=== PATIENT | female | born 1975 | race Two or more races ===

== ENCOUNTER 2016-10-21 23:35 | Inpatient (IN) | payer OTHER ==
[~2016-10-21] VITALS: Ht 154.9 cm; Wt 107.7 kg
[2016-10-21] MEDS ORDERED: NITROGLYCERIN 0.4 MG/TAB BOTTLE SL ONE (23:45)
[2016-10-21] MEDS ORDERED: ASPIRIN 325 MG TABLET PO ONE (23:45)
[2016-10-21] MEDS ORDERED: IV NORMAL SALINE 500 ML BAG IV ONE (23:45)
[2016-10-22] MEDS ORDERED: NITROGLYCERIN 0.4 MG/TAB BOTTLE SL ONE (00:03)
[2016-10-22] MEDS ORDERED: ASPIRIN 325 MG TABLET ONE (00:03)
[2016-10-22] MEDS ORDERED: NITROGLYCERIN OINT 1 GM PACKET TP ONE (00:15)
[2016-10-22] MEDS ORDERED: MORPHINE SULFATE 2 MG/1 ML DISP.SYRIN IV ONE (00:15)
[2016-10-22 00:36] LABS: HEMATOCRIT 35.9 % (37.0-47.0); HEMOGLOBIN 12.5 g/dL (12.0-16.0); MEAN CORPUSCULAR HEMOGLOBIN 31.9 uug (27.0-31.0); MEAN CORPUSCULAR HGB CONC 35 g/dL (32.0-37.0); MEAN CORPUSCULAR VOLUME 91.5 fL (81.0-99.0); RED BLOOD CELL COUNT(AUTO) 3.93 MIL/uL (4.20-5.40); WHITE BLOOD COUNT (AUTO) 9.7 K/uL (4.0-11.2)
[2016-10-22 00:37] LABS: BASOPHILS % (AUTO) 0.3 % (0.0-2.0); CALCIUM 9.1 mg/dL (8.5-10.1); CREATININE 0.8 mg/dL (0.6-1.3); EOSINOPHILS # (AUTO) 0.2 K/uL (0.0-0.7); EOSINOPHILS % (AUTO) 2.3 % (0.0-7.0); LYMPHOCYTES # (AUTO) 3.3 K/uL (0.8-4.8); LYMPHOCYTES % (AUTO) 33.5 % (20.5-51.5); MONOCYTES # (AUTO) 0.5 K/uL (0.1-1.30); MONOCYTES % (AUTO) 5.3 % (0.0-11.0); NEUTROPHILS # (AUTO) 5.7 K/uL (1.8-8.9); NEUTROPHILS % (AUTO) 58.6 % (38.5-71.5); PLATELET COUNT (AUTO) 202 K/uL (150-450); POTASSIUM 3.6 mmol/L (3.5-5.1); RED CELL DISTRIBUTION WIDTH 11.5 % (11.5-14.5)
[2016-10-22 00:49] LABS: ALBUMIN 3.5 g/dL (3.4-5.0); BILIRUBIN,DIRECT 0.1 mg/dL (0.0-0.2); BILIRUBIN,TOTAL 0.2 mg/dL (0.2-1.0); TOTAL PROTEIN, SERUM 7.8 g/dL (6.4-8.2)
[2016-10-22] MEDS ORDERED: IV NS 1000 ML 1,000 ML IV PRN (01:20)
[2016-10-22] MEDS ORDERED: MORPHINE SULFATE 2 MG/1 ML DISP.SYRIN IV PRN (01:30)
[2016-10-22] MEDS ORDERED: ENOXAPARIN SODIUM 40 MG/0.4 ML DISP.SYRIN SQ SCH (01:30)
[2016-10-22] MEDS ORDERED: Z GUARD REMEDY PASTE 57 GM TUBE TOP PRN (01:30)
[2016-10-22] MEDS ORDERED: ZOLPIDEM 5 MG TABLET PO PRN (01:30)
[2016-10-22] MEDS ORDERED: ONDANSETRON 4 MG/2 ML VIAL IV PRN (01:30)
[2016-10-22] MEDS ORDERED: ACETAMINOPHEN 325 MG TABLET PO PRN (01:30)
[2016-10-22] MEDS ORDERED: MAGNESIUM HYDROXIDE 30 ML LIQUID UDC PO PRN (01:30)
[2016-10-22 02:17] VITALS: BP 115/77
[2016-10-22] MEDS ORDERED: HYDROCODONE/APAP 5-325MG TABLET ONE (02:29)
[2016-10-22] MEDS: HYDROCODONE/APAP 5-325MG TABLET PO PRN ×2 (02:34→12:09)
[2016-10-22 04:00] VITALS: BP 122/76
[2016-10-22] MEDS ORDERED: MORPHINE SULFATE 2 MG/1 ML DISP.SYRIN ONE (05:46)
[2016-10-22] MEDS ORDERED: PANTOPRAZOLE SODIUM 40 MG TABLET.DR PO SCH (07:00)
[2016-10-22] MEDS ORDERED: GLIPIZIDE 2.5 MG (10:43)
[2016-10-22] MEDS ORDERED: HYDR12.5 PO (10:43)
[2016-10-22] MEDS ORDERED: ASPI81TA31 PO (10:43)
[2016-10-22] MEDS ORDERED: METF500T4 PO (10:43)
[2016-10-22 11:52] VITALS: BP 126/82
[2016-10-22] MEDS ORDERED: DEXTROSE 50% 50 ML DISP.SYRIN IV PRN (13:45)
[2016-10-22] MEDS ORDERED: INSULIN REGULAR, HUMAN 300 UNIT/3 ML VIAL SQ PRN (13:45)
[2016-10-22 16:07] VITALS: BP 127/80
[2016-10-22] MEDS ORDERED: GLIP5TAB13 PO (16:11)
[2016-10-22] MEDS ORDERED: BLOOD SUGAR DIAGNOSTIC 1 EACH STRIP VI SCH (16:30)
== END 2016-10-22 18:05 | disposition home or self-care (01) | DRG 203 ==
LOC: ER 23:38 → TELE 10-22 01:10
PROVIDERS: ADMIT Internal Medicine; ATTEND Internal Medicine
DX: M94.0 Chondrocostal junction syndrome [Tietze] (principal); E11.65 Type 2 diabetes mellitus with hyperglycemia; I10 Essential (primary) hypertension; M54.30 Sciatica, unspecified side; E66.9 Obesity, unspecified; E44.1 Mild protein-calorie malnutrition
CPT/HCPCS: 36415; 70030-TC; 71010; 85025; 85730; 93005; 93307; A4663; J1815; J2270; J7030; J7040

== ENCOUNTER 2022-09-29 12:59 | Emergency (ER) | payer OTHER ==
[~2022-09-29] VITALS: Ht 154.9 cm; Wt 98.9 kg
[~2022-09-29 12:59] MED LIST: ASPI81TA31 PO; GLIP5TAB13 PO; HYDR12.5 PO; METF-440 PO
--- NOTE | 2022-09-29 13:15 | NUR ---
Patient seen by
[2022-09-29] MEDS ORDERED: ONDANSETRON 4 MG/2 ML VIAL IV ONE (13:30)
[2022-09-29] MEDS ORDERED: IV NORMAL SALINE 1000 ML BAG IV ONE (13:30)
[2022-09-29] MEDS ORDERED: ONDANSETRON 4 MG/2 ML VIAL ONE (13:39)
[2022-09-29] MEDS ORDERED: ONDA4TAB5 PO (13:47)
[2022-09-29 13:58] LABS: MEAN CORPUSCULAR VOLUME 92.7 fL (75.5-95.3); PLATELET COUNT (AUTO) 118 K/uL (179-408)
[2022-09-29 14:18] LABS: BILIRUBIN,DIRECT 0.2 mg/dL (0.0-0.2); BILIRUBIN,TOTAL 0.5 mg/dL (0.2-1.0); CREATININE 0.6 mg/dL (0.6-1.3); POTASSIUM 3.8 mmol/L (3.5-5.1); TOTAL PROTEIN, SERUM 7.7 g/dL (6.4-8.2)
--- NOTE | 2022-09-29 15:22 | NUR ---
PT WAS D/C'd TO HOME. D/C INSTRUCTIONS GIVEN TO THE PT BY DR MAHAN.
[2022-09-29 15:24] VITALS: BP 135/88
== END 2022-09-29 15:24 | disposition home or self-care (01) ==
LOC: ER 12:59
DX: R11.2 Nausea with vomiting, unspecified (principal); R19.7 Diarrhea, unspecified; K76.0 Fatty (change of) liver, not elsewhere classified; R10.9 Unspecified abdominal pain; E11.65 Type 2 diabetes mellitus with hyperglycemia; Z79.84 Long term (current) use of oral hypoglycemic drugs; I10 Essential (primary) hypertension; K82.9 Disease of gallbladder, unspecified; R74.01 Elevation of levels of liver transaminase levels
CPT/HCPCS: 99284; 96374; 76705; 96361; 80076; 80048; 82962; 83690; 85025; 36415; J2405; J7040; A4663

== ENCOUNTER 2023-04-24 21:02 | Emergency (ER) | payer OTHER ==
[~2023-04-24] VITALS: Ht 154.9 cm; Wt 113.4 kg
[~2023-04-24 21:02] MED LIST changes: +ONDA4TAB5 PO
[2023-04-24 21:36] LABS: BASOPHILS # (AUTO) 0.1 K/UL (0.0-0.2); BASOPHILS % (AUTO) 0.8 % (0.0-2.0); DIFFERENTIAL COMMENT 0; EOSINOPHILS # (AUTO) 1.2 K/uL (0.0-0.7); EOSINOPHILS % (AUTO) 16.8 % (0.0-7.0); HEMATOCRIT 37.4 % (31.2-41.9); HEMOGLOBIN 12.8 g/dL (10.9-14.3); LYMPHOCYTES # (AUTO) 1.7 K/uL (0.8-4.8); LYMPHOCYTES % (AUTO) 23.5 % (20.5-51.5); MEAN CORPUSCULAR HEMOGLOBIN 31.1 uug (24.7-32.8); MEAN CORPUSCULAR HGB CONC 34 g/dL (32.3-35.6); MEAN CORPUSCULAR VOLUME 90.8 fL (75.5-95.3); MONOCYTES # (AUTO) 0.2 K/uL (0.1-1.30); MONOCYTES % (AUTO) 2.8 % (0.0-11.0); NEUTROPHILS % (AUTO) 56.1 % (38.5-71.5); PLATELET COUNT (AUTO) 114 K/uL (179-408); RED BLOOD CELL COUNT(AUTO) 4.12 MIL/uL (3.63-4.92); RED CELL DISTRIBUTION WIDTH 13.6 % (12.3-17.7); WHITE BLOOD COUNT (AUTO) 7.1 K/uL (3.8-11.8)
[2023-04-24 21:41] LABS: CALCIUM 8.3 mg/dL (8.5-10.1); CREATININE 0.9 mg/dL (0.6-1.3); POTASSIUM 3.7 mmol/L (3.5-5.1)
[2023-04-24 21:46] LABS: BILIRUBIN,DIRECT 0.1 mg/dL (0.0-0.2); BILIRUBIN,TOTAL 0.4 mg/dL (0.2-1.0); TOTAL PROTEIN, SERUM 7.1 g/dL (6.4-8.2)
[2023-04-24 22:09] LABS: *BILIRUBIN,URIN NEGATIVE (NEGATIVE); *CLARITY,URINE CLEAR (CLEAR); *COLOR,URINE YELLOW (YELLOW); *KETONES,URINE NEGATIVE (NEGATIVE); *PROTEIN,URINE 1+ (NEGATIVE); LEUKOCYTE ESTERASE ,URINE NEGATIVE (NEGATIVE); NITRITE, URINE NEGATIVE (NEGATIVE)
[2023-04-24 22:22] LABS: *BLOOD, URINE TRACE (NEGATIVE); UGLUCOSE 2+ (NEGATIVE)
[2023-04-24 22:23] LABS: *URINE HCG, QUAL NEGATIVE (NEGATIVE); BACTERIA,URINE FEW /HPF (NONE SEEN); SQUAMOUS EPITHELIAL CELL,UR FEW /HPF (NONE SEEN); WBC,URINE 0-3 /HPF (0-3)
[2023-04-24] MEDS ORDERED: IOHEXOL 300MG/ML 100 ML INFUS..BTL ONE (22:31)
[2023-04-24] MEDS ORDERED: SWABABLE VALVE TRANSFER SET EA MC ONE (22:31)
[2023-04-24] MEDS ORDERED: IV NORMAL SALINE 250 ML IV ONE (22:31)
[2023-04-25 00:27] VITALS: BP 154/71; TEMP 98.9; O2SAT 98
== END 2023-04-25 00:20 | disposition home or self-care (01) ==
LOC: ER 21:04
DX: R10.11 Right upper quadrant pain (principal); K76.0 Fatty (change of) liver, not elsewhere classified; E11.9 Type 2 diabetes mellitus without complications; I10 Essential (primary) hypertension; R74.01 Elevation of levels of liver transaminase levels; Z79.82 Long term (current) use of aspirin; Z79.84 Long term (current) use of oral hypoglycemic drugs; Z79.899 Other long term (current) drug therapy
CPT/HCPCS: 99285; 74177; 76705; 80076; 80048; 81001; 84703; 83690; 85025; 36415; Q9967; A4663